=== PATIENT | male | born 1985 | race Hispanic/Latino ===

== ENCOUNTER 2017-07-30 08:36 | Day surgery (SDC) | payer OTHER ==
[2017-07-30 09:00] VITALS: BMI 25.5
[2017-07-30] MEDS ORDERED: Propofol 10 mg/ml Inj (20 ML) ONE ×2 (10:38→10:47)
[2017-07-30] MEDS ORDERED: Lidocaine Hydrochloride 5 ML INJ ONE (10:39)
[2017-07-30 11:57] VITALS: TEMP 98.5
[2017-07-30 12:05] VITALS: BP 128/72; PULSE 80; RESP 18; O2SAT 99
== END 2017-07-30 11:55 | disposition home or self-care (01) ==
LOC: C.ENDO 08:36
PROVIDERS: ATTEND Internal Medicine Gastroenterology
DX: K29.70 Gastritis, unspecified, without bleeding (principal); K44.9 Diaphragmatic hernia without obstruction or gangrene; Z86.19 Personal history of other infectious and parasitic diseases
CPT/HCPCS: 43239; 88305; J2704